=== PATIENT | female | born 1940 | race Caucasian/White ===

== ENCOUNTER → 2017-04-25 | Emergency (ER) | payer OTHER ==
[~2017-04-25] VITALS: Ht 154.9 cm; Wt 65.8 kg
[~2017-04-25] MED LIST: AMLODIPINE BESYL5 MG; BUDESONIDE0.5 MG/2 M IH; COZAAR50 MG; GLUCOPHAGE XR500 MG; LEVALBUTER1.25 MG/3 IH; LEVAQUIN750 MG PO; MEDROLPACK PO; OFEV150 MG; PEPCID40 MG PO; TESSALON PERLE100 MG PO; TRAYENTA
== END | disposition home or self-care (01) ==
LOC: ER 11:34
DX: B34.9 Viral infection, unspecified (principal)

== ENCOUNTER 2017-05-01 23:34 | Emergency (ER) | payer OTHER ==
[~2017-05-01] VITALS: Ht 152.4 cm; Wt 59.0 kg
[~2017-05-01 23:34] MED LIST changes: -BUDESONIDE0.5 MG/2 M IH; -LEVALBUTER1.25 MG/3 IH; -LEVAQUIN750 MG PO; -MEDROLPACK PO; -PEPCID40 MG PO; -TESSALON PERLE100 MG PO; -TRAYENTA
[2017-05-02] MEDS ORDERED: TRAYENTA (00:03)
[2017-05-02] MEDS ORDERED: LEVAQUIN750 MG PO (04:22)
[2017-05-02] MEDS ORDERED: TESSALON PERLE100 MG PO (04:22)
[2017-05-02] MEDS ORDERED: PEPCID40 MG PO (04:22)
[2017-05-02] MEDS ORDERED: BUDESONIDE0.5 MG/2 M IH (04:22)
[2017-05-02] MEDS ORDERED: LEVALBUTER1.25 MG/3 IH (04:22)
[2017-05-02] MEDS ORDERED: MEDROLPACK PO (04:22)
== END 2017-05-02 04:16 | disposition home or self-care (01) ==
LOC: ER 23:34 → CPU-OBS 23:41 → ER 05-02 04:16
DX: R07.89 Other chest pain (principal); J18.9 Pneumonia, unspecified organism